=== PATIENT | female | born 1990 | race Hispanic/Latino ===

== ENCOUNTER 2019-03-31 08:41 | Outpatient (CLI) | payer OTHER ==
--- NOTE | 2019-03-31 12:59 | ULT ---
COMPLETE OBSTETRICAL ULTRASOUND: Date: 03/31/2019 INDICATION: Evaluate survey. COMPARISON: None. FINDINGS: There is a single, live intrauterine gestation in cephalic presentation. The placenta is posterior in location without evidence of previa. Cardiac activity is noted at 156 bpm. Cervical length is 4.44 c m. Biparietal diameter measured 4.63 cm, giving an estimated gestational age of 20 weeks and 0 days Head circumference measured 17.21 cm, giving an estimated gestational age of 20 weeks and 0 days. Abdominal circumference measured 14.99 cm, giving an estimated gestational age of 20 weeks and 2 days . Femoral length was 3.14 cm, giving an estimated gestational age of 19 weeks and 6 days. The estimated weight is 326 gm +/- 48 gm (0 lbs 11 oz, +/- 2 oz) (2nd percentile). The average gestational age by ultrasound is 20 weeks and 1 day with estimated due date of 08/17/2019 . Clinical dates were 23 weeks and 6 days with estimated due to date of 10/15/2018. Visualized survey appeared within normal limits. Visualized head, heart, stomach, spine, kidneys, cord insertion, and bladder appeared within normal limits. The nose and lips were not well s een. IMPRESSION: Low estimated weight based on gestational age by clinical data. A follow-up ultrasound in 1-2 w eeks is recommended to evaluate interval growth. A repeat evaluation would also be helpful to evaluat e lips and nose to complete the survey. POS: CET
== END 2019-03-31 08:42 | disposition home or self-care (01) ==
LOC: BICULT 08:41
PROVIDERS: ATTEND Family Medicine
DX: O09.892 Supervision of other high risk pregnancies, second trimester (principal); Z3A.20 20 weeks gestation of pregnancy
CPT/HCPCS: 76805

== ENCOUNTER 2019-04-11 08:35 | Outpatient (CLI) | payer OTHER ==
--- NOTE | 2019-04-11 09:24 | ULT ---
Obstetrical ultrasound: 04/11/2019 COMPARISON: 03/31/2019 HISTORY: Evaluate interval growth TECHNIQUE: Multiplanar grayscale sonographic imaging of the gravid uterus obtained FINDINGS: Single intrauterine gestation present with posterior placental location. No evidence for pr evia or abruption. presentation is breech. Amniotic fluid index is 19 cm. heart rate is 147 bpm. Cervical length is approximately 4.2 cm. anatomy is not assessed on this exam. The nose and lips were imaged on this examination a nd appear unremarkable. biometry: Biparietal diameter 5.2 cm 21 weeks 5 days Head circumference 19.0 cm 21 weeks 3 days Abdominal circumference 17.7 cm 22 weeks 4 days Femur length 3.3 cm 20 weeks 3 days Average age based on ultrasound is 21 weeks 4 days. Estimated date of delivery is 08/18/2019. Estimated weight is 434 g +/- 63 g (36th percentile). The patient reports last menstrual period of 11/10/2018 but on the prior examination reported a last m enstrual period of 10/15/2018. IMPRESSION: Single intrauterine gestation as detailed above.
== END 2019-04-11 08:36 | disposition home or self-care (01) ==
LOC: BICULT 08:35
PROVIDERS: ATTEND Nurse Practitioner
DX: O09.892 Supervision of other high risk pregnancies, second trimester (principal); Z3A.21 21 weeks gestation of pregnancy
CPT/HCPCS: 76816

== ENCOUNTER 2019-08-06 09:57 | Outpatient (CLI) | payer OTHER | END 2019-08-06 09:58 | disposition home or self-care (01) | LOC: LABBT 09:57 | PROVIDERS: ATTEND Family Medicine | DX: Z01.812 Encounter for preprocedural laboratory examination (principal); Z11.59 Encounter for screening for other viral diseases | CPT/HCPCS: 87635; U0003 ==

== ENCOUNTER 2019-08-11 05:41 | Inpatient (IN) | payer OTHER ==
[2019-08-11] MEDS ORDERED: Promethazine HCl 25 MG/ML VIAL IM PRN ×2 (06:01→08:33)
[2019-08-11] MEDS ORDERED: Lactated Ringer's 1,000 ML IV SCH (06:01)
[2019-08-11] MEDS ORDERED: hydrALAZINE 20 MG/ML VIAL SLOW IVP PRN ×2 (06:01→10:23)
[2019-08-11] MEDS ORDERED: Ondansetron PF 4 MG/2 ML Vial IVP PRN ×3 (06:01→10:23)
[2019-08-11 06:12] VITALS: BMI 36.3
[2019-08-11] MEDS ORDERED: CEFAZOLIN 2 GM in Premix Bag 1 BAG IVPB SCH (06:15)
[2019-08-11 06:17] LABS: Hemoglobin 9.6 g/dL (12.0-16.0); Mean Corpuscular HGB CONC 31.7 g/dL (32.0-36.0); Mean Corpuscular Hemoglobin 22.4 pg (27.0-31.0); Mean Corpuscular Volume 70.6 fL (78.0-98.0); Mean Platelet Volume 7.5 fL (7.4-10.4); Platelet Count 294 thou/uL (130-400); RBC Distribution Width 15.5 % (11.5-14.5); Red Blood Cell (RBC) Count 4.28 mill/uL (4.20-5.40); White Blood Cell (WBC) Count 11.1 thou/uL (4.8-10.8)
[2019-08-11] MEDS ORDERED: Famotidine/PF 20 mg/2ml Vial ONE (06:31)
[2019-08-11] MEDS ORDERED: Scopolamine 1.5 mg/72 hour Patch ONE (06:32)
[2019-08-11] MEDS ORDERED: Ondansetron PF 4 MG/2 ML Vial ONE (06:36)
[2019-08-11] MEDS ORDERED: Oxytocin 10 UNITS/ML VIAL ONE ×2 (06:37→06:38)
[2019-08-11] MEDS ORDERED: PHENYLEPHRINE-NS 100 MCG/ML 10 ML SYRINGE ONE ×2 (06:37→06:38)
[2019-08-11] MEDS ORDERED: MORPHINE 5 MG/10 ML PF VIAL ONE (06:55)
[2019-08-11 06:58] LABS: HBSAg Index 0.16 S/CO (0-0.99); Hep B Surf Ag Non-Reactive S/CO (NonReactive); Syphilis Antibody Nonreactive (Nonreactive); Syphilis Antibody Index 0.04 S/CO (<1.00 Non-Reactive)
[2019-08-11] MEDS ORDERED: Famotidine/PF 20 mg/2ml Vial SLOW IVP SCH (07:10)
--- NOTE | 2019-08-11 08:31 | PDOC.OPDEL ---
OB Operative/Delivery Note - Additional Findings/Plan Compilations/Other Findings: Procedure Note Date of Procedure: 08/11/19 Resident Surgeon: Drs. Osmany Francisco, Ember Hyatt Attending Surgeon: Dr. Arun Iyer Procedure: Primary low transverse caesarean section Preoperative Diagnosis: 1)Term intrauterine 2) Repeat c/s Postoperative Diagnosis: 1)same as above Anesthesia: spinal Indications: The patient is a 29 year old female at 39.1 weeks presenting for scheduled repeat c/s. Procedure in Detail: After risks, benefits, and alternatives were explained to the patient, she gave informed consent. Pre-operative antibiotics included Cefazolin 2 gram IV. The patient was taken to the operating room and epidural anesthesia was found to be sufficient. She was placed in the supine position with a left tilt and prepped and draped in usual sterile fashion. A Pfannenstiel incision was made with a scalpel and carried down to the level of the fascia which was sharply nicked. The fascial cut was extended bilaterally with Devlin scissors. The inferior and superior edges of the cut fascial edges were elevated with Vivi clamps and the underlying rectus muscles were sharply and bluntly dissected free. The recti were divided digitally and retracted manually. The peritoneum was entered cautiously using devlin scissors for dissection. Bladder blade was placed. A low transverse score was made with the scalpel and the uterus was entered in the midline with the scalpel. Clear fluid was seen. The hysterotomy was extended manually. The was noted to be vertex and was easily delivered by fundal pressure. Mouth and nares were bulb suctioned. Cord clamped and cut and grossly normal male infant was handed to waiting nurse. Cord blood was obtained. Placenta was manually extracted, found to be intact with 3 vessel cord and discarded. The uterus was externalized and the endometrium was curetted with a dry lap. The bladder blade was replaced and the uterus was closed with a running locking 0-PDS. 2 figure of eight knots of 0 -Vicryl were placed after this. Following this hemostasis was noted. The abdomen was irrigated with saline and suctioned free of clots. The uterus was internalized and the hysterotomy was again noted to be hemostatic. The peritoneum was closed using 3-0 vicryl in a running non-locking fashion. The fascia was closed with a running non-locking 0-PDS suture. The subcutaneous tissue was irrigated and there were no bleeders. The subcutaneous layer was approximated with 3 simple interrupted knots of 3-0 chromic. The skin was approximated with abelino and a pressure dressing was placed. All counts were correct. The patient tolerated the procedure well and was taken to the recovery room in stable condition. QBL: pending Complications: None Specimens: Cord blood sent to lab for blood type Findings: Grossly normal male . Grossly normal placenta with 3 vessel cord discarded. Drains: Gonzalez to gravity draining clear urine
[2019-08-11] MEDS ORDERED: Naloxone HCl 0.4 mg/ml Vial IV PRN (08:33)
[2019-08-11] MEDS ORDERED: L&D-Morphine 4 MG/ML VIAL SLOW IVP PRN (08:33)
[2019-08-11] MEDS ORDERED: Ondansetron HCl/PF 4 MG/2 ML Vial IVP PRN (08:33)
[2019-08-11] MEDS ORDERED: Promethazine HCl 25 MG SUPP PR PRN (08:33)
[2019-08-11] MEDS ORDERED: Naloxone HCl 0.4 mg/ml Vial IVP PRN ×2 (08:33)
[2019-08-11] MEDS ORDERED: diphenhydrAMINE 50 MG/ML VIAL IVP PRN (08:33)
[2019-08-11] MEDS ORDERED: Meperidine HCl/PF 25 MG/ML VIAL SLOW IVP PRN (08:33)
[2019-08-11] MEDS ORDERED: HYDROmorphone 2 MG/ML VIAL SLOW IVP PRN (08:33)
[2019-08-11] MEDS ORDERED: Ketorolac Tromethamine 30 MG/ML VIAL IVP PRN (08:33)
[2019-08-11] MEDS ORDERED: Ketorolac Tromethamine 30 MG/ML VIAL IVP SCH (08:45)
[2019-08-11] MEDS ORDERED: Communication Order-Pharmacy FS SCH (08:45)
[2019-08-11] MEDS ORDERED: Meperidine HCl/PF 25 MG/ML VIAL ONE (09:05)
[2019-08-11] MEDS ORDERED: Ketorolac Tromethamine 30 MG/ML VIAL ONE (09:05)
[2019-08-11] MEDS ORDERED: Morphine 4 MG/ML VIAL SLOW IVP PRN (10:00)
[2019-08-11] MEDS ORDERED: Adacel (T-DAP) 0.5 ML SYRINGE IM ONE (10:23)
[2019-08-11] MEDS ORDERED: diphenhydrAMINE 25 MG CAP PO PRN (10:23)
[2019-08-11] MEDS ORDERED: Lanolin Ointment 7 GM TUBE TOP PRN (10:23)
[2019-08-11] MEDS ORDERED: Bisacodyl 10 MG SUPP PR PRN (10:23)
[2019-08-11] MEDS ORDERED: HYDROcodone/Acetaminophen 5/325 mg Tablet PO PRN ×2 (10:23→20:45)
[2019-08-11] MEDS ORDERED: Prenatal Vitamin 1 TAB PO SCH (11:00)
[2019-08-11] MEDS ORDERED: Docusate Calcium (SURFAK) 240 MG CAP PO SCH (11:00)
[2019-08-11] MEDS ORDERED: Ferrous Sulfate 325 MG TAB PO SCH (11:00)
[2019-08-11] MEDS ORDERED: NS / Oxytocin 40 units/1000ml 1,000 ML ONE (11:07)
[2019-08-11] MEDS: Ketorolac Tromethamine 30 MG/ML VIAL IVP SCH ×2 (15:38→20:38)
[2019-08-11] MEDS: Ferrous Sulfate 325 MG TAB PO SCH (17:54)
[2019-08-11] MEDS ORDERED: Sodium Chloride 0.9% 10 ML ONE (20:34)
[2019-08-11] MEDS: Docusate Calcium (SURFAK) 240 MG CAP PO SCH (20:37)
[2019-08-11] MEDS: Simethicone Chewable 80 MG TAB PO PRN (20:43)
[2019-08-11] MEDS ORDERED: Meperidine HCl/PF 25 MG/ML VIAL IM PRN (20:45)
[2019-08-12] MEDS ORDERED: Sodium Chloride 0.9% 10 ML ONE (01:54)
[2019-08-12] MEDS: Ketorolac Tromethamine 30 MG/ML VIAL IVP SCH (02:20)
[2019-08-12 05:51] LABS: Hemoglobin 8.8 g/dL (12.0-16.0); Mean Corpuscular Volume 71.9 fL (78.0-98.0); Mean Platelet Volume 7.5 fL (7.4-10.4); Platelet Count 238 thou/uL (130-400); RBC Distribution Width 15.5 % (11.5-14.5); Red Blood Cell (RBC) Count 3.83 mill/uL (4.20-5.40); White Blood Cell (WBC) Count 11.4 thou/uL (4.8-10.8)
[2019-08-12] MEDS: Ferrous Sulfate 325 MG TAB PO SCH ×2 (08:35→16:34)
[2019-08-12] MEDS: Prenatal Vitamin 1 TAB PO SCH (08:35)
[2019-08-12] MEDS: Docusate Calcium (SURFAK) 240 MG CAP PO SCH ×2 (08:35→21:22)
[2019-08-12] MEDS: Simethicone Chewable 80 MG TAB PO PRN ×2 (08:35→16:34)
[2019-08-12] MEDS: Ibuprofen 800 MG TAB PO SCH ×3 (08:39→21:22)
[2019-08-12] MEDS: HYDROcodone/Acetaminophen 5/325 mg Tablet PO PRN ×2 (12:41→16:34)
[2019-08-13] MEDS: HYDROcodone/Acetaminophen 5/325 mg Tablet PO PRN ×2 (00:09→08:28)
[2019-08-13] MEDS: Ibuprofen 800 MG TAB PO SCH (05:49)
[2019-08-13 08:19] VITALS: BP 106/68; TEMP 98
[2019-08-13] MEDS: Docusate Calcium (SURFAK) 240 MG CAP PO SCH (08:28)
[2019-08-13] MEDS: Simethicone Chewable 80 MG TAB PO PRN (08:28)
[2019-08-13] MEDS: Ferrous Sulfate 325 MG TAB PO SCH (08:28)
[2019-08-13] MEDS: Prenatal Vitamin 1 TAB PO SCH (08:28)
== END 2019-08-13 11:05 | disposition home or self-care (01) | DRG 788 ==
LOC: L&D 05:41 → 3SW 13:58
PROVIDERS: ADMIT Family Medicine; ATTEND Family Medicine
PROC: 10D00Z1 Extraction of Products of Conception, Low, Open Approach (ICD-10-PCS; principal; 2019-08-11)
DX: O34.211 Maternal care for low transverse scar from previous cesarean delivery (principal); Z3A.39 39 weeks gestation of pregnancy; Z37.0 Single live birth
CPT/HCPCS: 36415; 85027; 85461; 86780; 86850; 86900; 86901; 87340; 90384; 96372; J1885; J2175; J2270; J2274; J2405; J2590; S0028

== ENCOUNTER 2021-12-25 21:40 | Emergency (ER) | payer OTHER ==
[2021-12-26] MEDS ORDERED: Bupivacaine 0.5% 10 ML VIAL ONE (00:56)
[2021-12-26] MEDS ORDERED: Boostrix 0.5 ML (Tdap) VIAL (>/=7 yrs of age) ONE (00:56)
[2021-12-26] MEDS ORDERED: Lidocaine 1% MPF 2 ML VIAL ONE (00:56)
[2021-12-26] MEDS ORDERED: Bupivacaine 0.25% 10 ML VIAL ONE (00:59)
== END 2021-12-26 02:16 | disposition home or self-care (01) ==
LOC: ERS 21:40
DX: S61.012A Laceration without foreign body of left thumb without damage to nail, initial encounter (principal); W26.8XXA Contact with other sharp object(s), not elsewhere classified, initial encounter
CPT/HCPCS: 12001; 90715; J3490; S0020